=== PATIENT | male | born 1980 | race Caucasian/White ===

== ENCOUNTER 2018-03-22 20:53 | Emergency (ER) | payer OTHER ==
[2018-03-22 21:58] VITALS: RESP 18
--- NOTE | 2018-03-22 23:12 | ED ---
Abdominal Pain HPI - General Chief Complaint: Abdominal Pain Stated Complaint: Abd Pain Time Seen by Provider: 03/22/18 23:11 Source: patient Mode of arrival: ambulatory Limitations: no limitations - History of Present Illness Initial Comments: 37-year-old male with a history of hernia repair approximately 10 years ago, patient states he had the repair with mesh. Patient states that he is not certain what type of hernia he had, he doesn't recall having any specific hernia symptoms. Patient describes it as being evaluated by his physician for a abdominal pain and told that he had a hernia and subsequently undergoing surgery where he was told he had mesh placed. Patient is very uncertain of all of the circumstances leading up to or including his surgery. Patient states that today he began experiencing abdominal pain right around his umbilicus and became concerned that this may be related to the mesh. Patient states that he is concerned that she may have torn inside of him. Eyes any chest from a or heavy lifting. He denies any nausea, vomiting or change in bowel or bladder habits. Denies any fevers or chills. Patient has point tenderness at the umbilicus. - Related Data Previous Rx's Medication Instructions Recorded Cyclobenzaprine [Flexeril] 10 mg PO TID #20 tablet 02/21/14 Hydrocodone/Acetaminophen 1 each PO Q4HR PRN #20 tablet 02/21/14 [Hydrocodone/Acetaminophen 5-325] Ibuprofen [Motrin] 600 mg PO Q8HR PRN #30 tab 02/21/14 Cephalexin [Keflex] 500 mg PO Q6HR #28 cap 03/23/18 Allergies Allergy/AdvReac Type Severity Reaction Status Date / Time No Known Allergies Allergy Verified 03/22/18 21:58 Review of Systems ROS Statement: Those systems with pertinent positive or pertinent negative responses have been documented in the HPI. ROS Other: All systems not noted in ROS Statement are negative. Past Medical History Past Medical History: No Reported History History of Any Multi-Drug Resistant Organisms: None Reported Past Surgical History: Appendectomy, Hernia Repair Past Psychological History: No Psychological Hx Reported Smoking Status: Current every day smoker Past Alcohol Use History: Rare Past Drug Use History: None Reported General Exam Limitations: no limitations General appearance: alert, in no apparent distress Head exam: Present: atraumatic, normocephalic Eye exam: Present: normal appearance, PERRL ENT exam: Present: normal exam Neck exam: Present: normal inspection Respiratory exam: Absent: respiratory distress Cardiovascular Exam: Present: regular rate, normal rhythm GI/Abdominal exam: Present: soft, tenderness (tenderness and erythema of skin surrounding umbilicus, no abscess noted, no drainage from umbilicus), normal bowel sounds. Absent: distended, guarding, rebound, rigid, mass Rectal exam: Present: deferred Extremities exam: Present: normal inspection Back exam: Present: normal inspection Neurological exam: Present: alert, oriented X3 Psychiatric exam: Present: normal affect, normal mood Skin exam: Present: warm, dry, intact Course Vital Signs 03/22/18 03/23/18 21:54 03:16 Temperature 98.4 F 97 F L Pulse Rate 66 88 Respiratory 18 18 Rate Blood Pressure 150/89 134/76 O2 Sat by Pulse 99 98 Oximetry Medical Decision Making - Medical Decision Making The patient was seen and evaluated, history is obtained from the patient Patient with point tenderness superior to the umbilicus, on physical exam I suspect the tenderness is in the soft tissue, however the patient is stated that he has deeper abdominal pain X-ray was ordered and revealed no bowel obstruction, I will proceed with a computed tomography scan Computed tomography scan also suggestive of cellulitis in the umbilical region, no deeper infection no abscess no urethral cysts noted Ulcer discussed the patient who is agreeable to plan for discharge home on oral antibiotics, skin hygiene was discussed with the patient, washing the wound with soapy water, taking oral antibiotics 4 times daily and follow up with primary care or return to the ER for any worsening. All questions pertaining care were answered best my ability patient was discharged home in stable condition - Lab Data Result diagrams: 03/23/18 01:30 03/23/18 01:30 Lab Results 03/22/18 03/23/18 03/23/18 Range/Units Unknown 01:30 01:30 WBC 8.8 (3.8-10.6) k/uL RBC 5.01 (4.30-5.90) m/uL Hgb 15.5 (13.0-17.5) gm/dL Hct 44.1 (39.0-53.0) % MCV 87.9 (80.0-100.0) fL MCH 30.9 (25.0-35.0) pg MCHC 35.1 (31.0-37.0) g/dL RDW 12.7 (11.5-15.5) % Plt Count 262 (150-450) k/uL Neutrophils % 57 % Lymphocytes % 32 % Monocytes % 6 % Eosinophils % 4 % Basophils % 0 % Neutrophils # 5.0 (1.3-7.7) k/uL Lymphocytes # 2.8 (1.0-4.8) k/uL Monocytes # 0.5 (0-1.0) k/uL Eosinophils # 0.4 (0-0.7) k/uL Basophils # 0.0 (0-0.2) k/uL Sodium 139 (137-145) mmol/L Potassium 4.2 (3.5-5.1) mmol/L Chloride 105 (98-107) mmol/L Carbon Dioxide 26 (22-30) mmol/L Anion Gap 8 mmol/L BUN 15 (9-20) mg/dL Creatinine 0.80 (0.66-1.25) mg/dL Est GFR (CKD-EPI)AfAm >90 (>60 ml/min/1.73 sqM) Est GFR (CKD-EPI)NonAf >90 (>60 ml/min/1.73 sqM) Glucose 91 (74-99) mg/dL Calcium 9.5 (8.4-10.2) mg/dL Urine Color Yellow Urine Appearance Clear (Clear) Urine pH 6.0 (5.0-8.0) Ur Specific [place] 1.025 (1.001-1.035) Urine Protein Negative (Negative) Urine Glucose (UA) Negative (Negative) Urine Ketones Negative (Negative) Urine Blood Negative (Negative) Urine Nitrite Negative (Negative) Urine Bilirubin Negative (Negative) Urine Urobilinogen <2.0 (<2.0) mg/dL Ur Leukocyte Esterase Negative (Negative) Disposition Clinical Impression: Cellulitis Disposition: HOME SELF-CARE Condition: Good Instructions: Cellulitis (ED) Prescriptions: Cephalexin [Keflex] 500 mg PO Q6HR #28 cap Is patient prescribed a controlled substance at d/c from ED?: No Referrals: None,Stated [Primary Care Provider] - 1-2 days Time of Disposition: 03:00
--- NOTE | 2018-03-22 23:41 | XR ---
EXAMINATION TYPE: XR abdomen acute w cxr DATE OF EXAM: 03/22/2018 COMPARISON: NONE HISTORY: Abdominal pain TECHNIQUE: Chest x-ray and supine and upright abdomen. FINDINGS: Bowel gas pattern is normal. There is no sign of intestinal obstruction or pneumoperitoneum. Fecal pa ttern is normal. Heart and mediastinum are normal. Lungs are clear. There are no pathologic calcifica tions over the kidneys. IMPRESSION: Normal chest. Nonacute abdomen.
[2018-03-23 00:07] LABS: Appearance,Urine Clear (Clear); Bilirubin,Urine Negative (Negative); Blood,Urine Negative (Negative); Color,Urine Yellow; Glucose,Urine (UA) Negative (Negative); Ketones,Urine Negative (Negative); Leukocyte Esterase,Urine Negative (Negative); Nitrite,Urine Negative (Negative); Protein,Urine Negative (Negative); Specific Gravity,Urine 1.025 (1.001-1.035); Urobilinogen,Urine <2.0 mg/dL (<2.0)
[2018-03-23 01:50] LABS: Basophils % (A) 0 %; Eosinophils # (A) 0.4 k/uL (0-0.7); Eosinophils % (A) 4 %; HCT 44.1 % (39.0-53.0); HGB 15.5 gm/dL (13.0-17.5); Lymphocytes # (A) 2.8 k/uL (1.0-4.8); Lymphocytes % (A) 32 %; MCH 30.9 pg (25.0-35.0); MCHC 35.1 g/dL (31.0-37.0); MCV 87.9 fL (80.0-100.0); Monocytes # (A) 0.5 k/uL (0-1.0); Monocytes % (A) 6 %; Neutrophils % (A) 57 %; Platelet Count 262 k/uL (150-450); RBC 5.01 m/uL (4.30-5.90); RDW 12.7 % (11.5-15.5); WBC 8.8 k/uL (3.8-10.6)
[2018-03-23 02:01] LABS: Anion Gap 8 mmol/L; Blood Urea Nitrogen 15 mg/dL (9-20); Calcium 9.5 mg/dL (8.4-10.2); Carbon Dioxide 26 mmol/L (22-30); Chloride 105 mmol/L (98-107); Glucose 91 mg/dL (74-99); Potassium 4.2 mmol/L (3.5-5.1); Sodium 139 mmol/L (137-145)
--- NOTE | 2018-03-23 02:16 | CT ---
EXAMINATION TYPE: CT abdomen pelvis w con DATE OF EXAM: 03/23/2018 COMPARISON: None HISTORY: no prior, pt having mid abd pain, history of hernia repair with mesh [address] DLP: 469.20 mGycm Automated exposure control for dose reduction was used. TECHNIQUE: Helical acquisition of images was performed from the lung bases through the pelvis. CONTRAST: Performed without Oral Contrast and with IV Contrast, patient injected with 100 mL of Isovue 300. FINDINGS: There is subsegmental atelectasis at the lung bases. There is no pleural effusion. There is no perica rdial effusion. Liver spleen pancreas gallbladder appear normal. Bile ducts are not dilated. There is no adrenal mass . Kidneys show satisfactory contrast opacification. There is no hydronephrosis. There is no retroperi toneal adenopathy. There is cutaneous thickening at the umbilicus. Bladder distends smoothly. There i s no evidence of a bowel obstruction. Appendix is not seen. There is no evidence of appendicitis. Bon y structures are intact. There is no ascites. There is no sign of free air. IMPRESSION: NO ACUTE ABNORMALITY WITHIN THE ABDOMEN AND PELVIS. THERE IS SOME SKIN THICKENING AT THE UMBILICUS TH AT COULD BE POSTSURGICAL OR RELATED TO LOCALIZED INFLAMMATORY CHANGE. CLINICAL CORRELATION NEEDED.
[2018-03-23] MEDS ORDERED: CEPHALEXIN 500MG STARTER PACK 4 CAP BTL PO STA (02:48)
[2018-03-23 03:18] VITALS: BP 134/76; PULSE 88; TEMP 97
== END 2018-03-23 03:16 | disposition home or self-care (01) ==
LOC: EC 20:53
DX: L03.311 Cellulitis of abdominal wall (principal); F17.200 Nicotine dependence, unspecified, uncomplicated; Z90.49 Acquired absence of other specified parts of digestive tract; Z98.890 Other specified postprocedural states
CPT/HCPCS: 36415; 74022; 74177; 80048; 81003; 85025; 99284

== ENCOUNTER 2018-03-29 13:41 | Emergency (ER) | payer OTHER ==
[2018-03-29 14:10] VITALS: BP 149/89; PULSE 84; RESP 16; TEMP 98.3
[2018-03-29] MEDS ORDERED: LIDOCAINE 1% INJ 10MG/ML (20 ML MDV) SQ ONE (15:11)
--- NOTE | 2018-03-29 15:28 | ED ---
General Adult HPI - General Chief complaint: Skin/Abscess/Foreign Body Stated complaint: abdominal pain-revisit Time Seen by Provider: 03/29/18 15:06 Source: patient, RN notes reviewed, old records reviewed Mode of arrival: ambulatory Limitations: no limitations - History of Present Illness Initial comments: 37-year-old male presenting for reevaluation of pain and swelling around his umbilicus. Patient was seen several days ago with this pain complaint. He received complete workup including CAT scan of the abdomen. This did reveal some soft tissue swelling around the umbilicus. Patient has remote history of umbilical hernia status post mesh repair. He denies fever or chills. Denies generalized abdominal pain or nausea vomiting diarrhea. He is otherwise healthy. He has been on Keflex for the past 4 days. Over this time this mild pain has worsened and become more swollen. - Related Data Previous Rx's Medication Instructions Recorded Cyclobenzaprine [Flexeril] 10 mg PO TID #20 tablet 02/21/14 Hydrocodone/Acetaminophen 1 each PO Q4HR PRN #20 tablet 02/21/14 [Hydrocodone/Acetaminophen 5-325] Ibuprofen [Motrin] 600 mg PO Q8HR PRN #30 tab 02/21/14 Cephalexin [Keflex] 500 mg PO Q6HR #28 cap 03/23/18 Cephalexin [Keflex] 500 mg PO Q6HR #40 cap 03/29/18 Ibuprofen [Motrin] 600 mg PO Q8HR PRN #24 tab 03/29/18 Sulfamethox-Tmp 800-160Mg [Bactrim 1 tab PO Q12HR #28 tab 03/29/18 DS 800-160 mg] Allergies Allergy/AdvReac Type Severity Reaction Status Date / Time No Known Allergies Allergy Verified 03/29/18 14:10 Review of Systems ROS Statement: Those systems with pertinent positive or pertinent negative responses have been documented in the HPI. ROS Other: All systems not noted in ROS Statement are negative. Past Medical History Past Medical History: No Reported History History of Any Multi-Drug Resistant Organisms: None Reported Past Surgical History: Appendectomy, Hernia Repair Past Psychological History: No Psychological Hx Reported Smoking Status: Current every day smoker Past Alcohol Use History: Rare Past Drug Use History: None Reported General Exam Limitations: no limitations General appearance: alert, in no apparent distress Head exam: Present: atraumatic, normocephalic Eye exam: Present: normal appearance, PERRL, EOMI ENT exam: Present: normal exam Neck exam: Present: normal inspection. Absent: tenderness, meningismus Respiratory exam: Present: normal lung sounds bilaterally, respiratory distress Cardiovascular Exam: Present: regular rate, normal rhythm GI/Abdominal exam: Present: soft, other (There is umbilical erythema with cellulitis, and central fluctuance. Proximally 2 cm palpable abscess on the inferior border of the umbilicus. Remaining abdominal exam is unremarkable.). Absent: distended, tenderness, guarding Extremities exam: Present: normal inspection Neurological exam: Present: alert, oriented X3, CN II-XII intact. Absent: motor sensory deficit Psychiatric exam: Present: normal affect, normal mood Skin exam: Present: warm, dry, intact Course Vital Signs 03/29/18 14:08 Temperature 98.3 F Pulse Rate 84 Respiratory 16 Rate Blood Pressure 149/89 O2 Sat by Pulse 99 Oximetry Procedures - Incision & Drainage Consent Obtained: verbal consent Time Out Performed?: Yes Site: abdomen Anesthetic Used: lidocaine 1% I&D Cleaning Method: Betadine Sterile Field Used?: Yes Scalpel Used: #11 Needle Aspiration Performed?: Yes I&D Drainage Obtained: Pus, Blood Packing: Iodoform Culture Obtained?: No Patient Tolerated Procedure: well Medical Decision Making - Medical Decision Making 37-year-old male with umbilical abscess. This is strain in the emergency department. Patient does have remote history of umbilical hernia repair with mesh. Given this there is concern that this infection will not clear with drainage and antibiotics alone. He is given outpatient general surgery follow- up. He will continue Keflex, Bactrim will be added. He will return with any worsening or changing symptoms. Disposition Clinical Impression: Abscess Disposition: HOME SELF-CARE Condition: Good Instructions: Abscess Incision and Drainage (ED), Abscess (ED) Prescriptions: Cephalexin [Keflex] 500 mg PO Q6HR #40 cap Ibuprofen [Motrin] 600 mg PO Q8HR PRN #24 tab PRN Reason: Pain Sulfamethox-Tmp 800-160Mg [Bactrim DS 800-160 mg] 1 tab PO Q12HR #28 tab Is patient prescribed a controlled substance at d/c from ED?: No Referrals: None,Stated [Primary Care Provider] - 1-2 days Natty Choi MD [STAFF PHYSICIAN] - 1-2 days Time of Disposition: 15:27
== END 2018-03-29 15:52 | disposition home or self-care (01) ==
LOC: EC 13:41
DX: L02.216 Cutaneous abscess of umbilicus (principal); F17.200 Nicotine dependence, unspecified, uncomplicated; Z90.49 Acquired absence of other specified parts of digestive tract; Z98.890 Other specified postprocedural states
CPT/HCPCS: 99284; 10060; J2001

== ENCOUNTER 2019-02-07 15:26 | Emergency (ER) | payer OTHER ==
[2019-02-07 15:35] VITALS: BP 166/97; PULSE 72; RESP 18; TEMP 98.1
--- NOTE | 2019-02-07 15:43 | ED ---
Head Injury HPI - General Source: patient, RN notes reviewed Mode of arrival: ambulatory Limitations: no limitations <Hector Quiñonez - Last Filed: 02/07/19 15:41> <Lilian Zendejas - Last Filed: 02/07/19 16:07> - General Chief complaint: Head Injury Stated complaint: Head injury Time Seen by Provider: 02/07/19 15:38 - History of Present Illness Initial comments: 38-year-old male presents emergency Department chief complaint of a head injury. Patient states that he is at his housework and states that a beam from an 8 foot ceiling fell onto his head. Patient states that it was a wooden beam. He states he didn't pass out from the site injury. Denies any neck pain, extremity injury. He states he just feels off, chills tired. Patient does complain of headache no blurred vision states that he does have some photosensitivity. Patient denies any focal weakness, nausea, vomiting, chest pain, shortness breat h. (Hector Quiñonez) - Related Data Previous Rx's Medication Instructions Recorded Meclizine [Antivert] 25 mg PO TID #20 tab 02/07/19 Ondansetron Odt [Zofran Odt] 4 mg PO Q8HR PRN #20 tab 02/07/19 Allergies/Adverse reactions: Allergies Allergy/AdvReac Type Severity Reaction Status Date / Time No Known Allergies Allergy Verified 02/07/19 15:53 Review of Systems ROS Other: All systems not noted in ROS Statement are negative. <Hector Quiñonez - Last Filed: 02/07/19 15:41> ROS Other: All systems not noted in ROS Statement are negative. <Lilian Zendejas - Last Filed: 02/07/19 16:07> ROS Statement: Those systems with pertinent positive or pertinent negative responses have been documented in the HPI. Past Medical History Past Medical History: No Reported History History of Any Multi-Drug Resistant Organisms: None Reported Past Surgical History: Appendectomy, Hernia Repair Past Psychological History: No Psychological Hx Reported Smoking Status: Current every day smoker Past Alcohol Use History: Rare Past Drug Use History: Marijuana <Hector Quiñonez - Last Filed: 02/07/19 15:41> General Exam Limitations: no limitations General appearance: alert, in no apparent distress Head exam: Present: atraumatic, normocephalic, normal inspection Eye exam: Present: normal appearance, PERRL, EOMI. Absent: scleral icterus, conjunctival injection, periorbital swelling ENT exam: Present: normal exam, normal oropharynx, mucous membranes moist, TM's normal bilaterally Neck exam: Present: normal inspection, full ROM. Absent: tenderness, meningismus, lymphadenopathy Respiratory exam: Present: normal lung sounds bilaterally, prolonged expiratory. Absent: respiratory distress, wheezes, rales, rhonchi, stridor, decreased breath sounds Cardiovascular Exam: Present: regular rate, normal rhythm, normal heart sounds. Absent: systolic murmur, diastolic murmur, rubs, gallop, clicks Extremities exam: Present: other (Upper extremity strength equal bilaterally neurovascular intact) Neurological exam: Present: alert, oriented X3, CN II-XII intact, reflexes normal, other (Finger to nose intact bilaterally without overshooting). Absent: motor sensory deficit Skin exam: Present: warm, dry, intact, normal color. Absent: rash <Hector Quiñonez - Last Filed: 02/07/19 15:41> Course Vital Signs 02/07/19 15:31 Temperature 98.1 F Pulse Rate 72 Respiratory 18 Rate Blood Pressure 166/97 O2 Sat by Pulse 98 Oximetry Medical Decision Making - Radiology Data Radiology results: report reviewed <Lilian Zendejas - Last Filed: 02/07/19 16:07> - Medical Decision Making Patient's 38-year-old male present today after head injury. Patient reports that he could be a felon have his head. I see this Patient is a signout from [employer]. While pending computed tomography scan. Patient CT's head for any acute renal process. Discussed likely concussion symptoms. Discussed treatment with medication Antivert for symptoms of dizziness discussed Motrin Tylenol for headache. Patient is advised to remain vaginally next 24-48 hours if there is any alarming symptoms occur Patient comes for reevaluation. All questions were answered. (Lilian Zendejas) - Radiology Data CT performed at 1551 shows a negative computed tomography scan of the brain. Ventricles normal size. No mass effect or midline shift. (Lilian Zendejas) Disposition <Hector Quiñonez - Last Filed: 02/07/19 15:41> Is patient prescribed a controlled substance at d/c from ED?: No Time of Disposition: 16:06 <Lilian Zendejas - Last Filed: 02/07/19 16:07> Clinical Impression: Head injury, Concussion Disposition: HOME SELF-CARE Condition: Good Instructions (If sedation given, give patient instructions): Concussion (ED) Additional Instructions: Patient was sitting Motrin Tylenol for pain. Use medication as prescribed to help with symptoms for dizziness and maybe nausea. Patient should have close follow-up with primary care doctor. The Patient should be monitored next 24-48 hours. There is any signs of altered mental status with return to emergency department for prompt reevaluation. Prescriptions: Meclizine [Antivert] 25 mg PO TID #20 tab Ondansetron Odt [Zofran Odt] 4 mg PO Q8HR PRN #20 tab PRN Reason: Nausea Referrals: None,Stated [Primary Care Provider] - 1-2 days Hollie Garcia MD [STAFF PHYSICIAN] - 1-2 days
--- NOTE | 2019-02-07 15:54 | CT ---
EXAMINATION TYPE: CT brain wo con DATE OF EXAM: 02/07/2019 COMPARISON: None HISTORY: MAGANA and dizziness after head injury CT DLP: 1091.4 mGycm. Automated Exposure Control for Dose Reduction was Utilized. TECHNIQUE: CT scan of the head is performed without contrast. FINDINGS: Ventricles of normal size. There is no mass effect nor midline shift. There is no sign of i ntracranial hemorrhage. There is debris in the external auditory canals bilaterally. Calvarium is int act. Impression Negative CT scan of the brain.
== END 2019-02-07 16:16 | disposition home or self-care (01) ==
LOC: EC 15:26
DX: S06.0X0A Concussion without loss of consciousness, initial encounter (principal); F17.200 Nicotine dependence, unspecified, uncomplicated; W20.8XXA Other cause of strike by thrown, projected or falling object, initial encounter; Y92.009 Unspecified place in unspecified non-institutional (private) residence as the place of occurrence of the external cause
CPT/HCPCS: 70450; 99283

== ENCOUNTER 2020-08-27 12:23 | Emergency (ER) | payer OTHER ==
[2020-08-27 12:31] VITALS: PULSE 72
--- NOTE | 2020-08-27 13:00 | ED ---
Chest Pain HPI - General Chief Complaint: Chest Pain Stated Complaint: Chest pain, pulled muscle Time Seen by Provider: 08/27/20 12:30 Source: patient Mode of arrival: ambulatory Limitations: no limitations - History of Present Illness Initial Comments: 39-year-old male presents to emergency room with chest pain. States it started 3 days ago. Located over the left side of his chest which is reproducible with movement. States that it is hard for him to do any heavy lifting for which she states he has been doing a lot of heavy lifting recently. Patient does think that is musculoskeletal in nature however was concerned about cardiac issues. States he does have family history of cardiac disease. No fevers or chills. Denies cough. No difficulties breathing. No ripping or tearing sensation his back. Denies any numbness, tingling or weakness in his extremities. Patient is a smoker. Denies a lower swelling or history of DVT or PE. Denies calf pain. No nausea or vomiting. Denies abdominal pain. No other alleviating, precipitating or modifying factors - Related Data Home Medications Medication Instructions Recorded Confirmed lisinopriL [Zestril] 10 mg PO DAILY 08/27/20 08/27/20 Allergies Allergy/AdvReac Type Severity Reaction Status Date / Time No Known Allergies Allergy Verified 08/27/20 13:01 Review of Systems ROS Statement: Those systems with pertinent positive or pertinent negative responses have been documented in the HPI. ROS Other: All systems not noted in ROS Statement are negative. EKG Findings - EKG Comments: EKG Findings:: EKG demonstrates sinus rhythm with short OK. Rate of 73. OK interval 100. QRS 96. QTC 385. Peaked T waves V2 through V4. No acute ST segment elevations or depressions. no signs of Brugada or WPW. Past Medical History Past Medical History: No Reported History History of Any Multi-Drug Resistant Organisms: None Reported Past Surgical History: Appendectomy, Hernia Repair Past Psychological History: No Psychological Hx Reported Smoking Status: Current every day smoker Past Alcohol Use History: Rare Past Drug Use History: Marijuana General Exam Limitations: no limitations General appearance: alert, in no apparent distress Head exam: Present: atraumatic, normocephalic, normal inspection Eye exam: Present: normal appearance, PERRL, EOMI. Absent: scleral icterus, conjunctival injection, periorbital swelling ENT exam: Present: normal exam, mucous membranes moist Neck exam: Present: normal inspection. Absent: tenderness, meningismus, lymphadenopathy Respiratory exam: Present: normal lung sounds bilaterally, chest wall tenderness (left anterior chest wall). Absent: respiratory distress, wheezes, rales, rhonchi, stridor Cardiovascular Exam: Present: regular rate, normal rhythm, normal heart sounds. Absent: systolic murmur, diastolic murmur, rubs, gallop, clicks GI/Abdominal exam: Present: soft, normal bowel sounds. Absent: distended, tenderness, guarding, rebound, rigid Extremities exam: Present: normal inspection, full ROM, normal capillary refill. Absent: tenderness, pedal edema, joint swelling, calf tenderness Back exam: Present: normal inspection Neurological exam: Present: alert, oriented X3, CN II-XII intact Psychiatric exam: Present: normal affect, normal mood Skin exam: Present: warm, dry, intact, normal color. Absent: rash Course Vital Signs 08/27/20 08/27/20 12:27 14:11 Temperature 97.7 F 98.3 F Pulse Rate 72 72 Respiratory 18 20 Rate Blood Pressure 125/78 111/83 O2 Sat by Pulse 97 99 Oximetry Chest Pain MDM - MDM Upon arrival patient was placed into room 3. There are history and physical, performed. Patient does have reproducible chest pain to palpation. He is hooked to continuous pulse ox and cardiac monitoring. 12-lead EKG was performed. Laboratory studies are conducting the patient went for a chest x- ray. Review the laboratory studies demonstrate a negative troponin. C-reactive protein is negative. Chest x-ray demonstrates no acute process. Results are discussed patient. He was given 50 mg to Toradol for pain control. I discussed the diagnosis, differential and treatment options. Patient will be discharged home at this time to follow up with his primary care doctor in 2-4 days. Recommend an echo of his heart. Take Motrin for pain control. Return to the emergency room for any new or worsening symptoms. Patient was discharged home in stable condition Disposition Clinical Impression: Atypical chest pain Disposition: HOME SELF-CARE Condition: Stable Instructions (If sedation given, give patient instructions): Chest Wall Pain (ED) Additional Instructions: Please follow-up with your primary care doctor in 2-4 days for an echo. Return to the emergency room for any new or worsening symptoms Is patient prescribed a controlled substance at d/c from ED?: No Referrals: None,Stated [Primary Care Provider] - 1-2 days Time of Disposition: 14:12
--- NOTE | 2020-08-27 13:27 | XR ---
EXAMINATION TYPE: XR chest 2V DATE OF EXAM: 08/27/2020 COMPARISON: 03/22/2018 TECHNIQUE: PA and lateral views submitted. HISTORY: Chest pain FINDINGS: The lungs are clear and there is no pneumothorax, pleural effusion, or focal pneumonia. Mild hyperi nflation. IMPRESSION: 1. No acute process.
[2020-08-27 13:29] LABS: ALT 18 U/L (4-49); AST 22 U/L (17-59); African American GFR (CKD) >90 (>60 ml/min/1.73 sqM); Albumin 5.2 g/dL (3.5-5.0); Alkaline Phosphatase 59 U/L (38-126); Anion Gap 6 mmol/L; Blood Urea Nitrogen 12 mg/dL (9-20); C Reactive Protein <5.0 mg/L (<10.0); Calcium 10.3 mg/dL (8.4-10.2); Carbon Dioxide 27 mmol/L (22-30); Chloride 104 mmol/L (98-107); Glucose 94 mg/dL (74-99); Magnesium 1.9 mg/dL (1.6-2.3); Non-African American GFR(CKD) >90 (>60 ml/min/1.73 sqM); Potassium 4.7 mmol/L (3.5-5.1); Sodium 137 mmol/L (137-145); Total Bilirubin 0.6 mg/dL (0.2-1.3); Total Protein 8.3 g/dL (6.3-8.2)
[2020-08-27 13:53] LABS: Partial Thromboplastin Time 24.7 sec (22.0-30.0); Prothrombin Time 10.6 sec (9.0-12.0)
[2020-08-27 13:57] LABS: Basophils % (A) 0 %; Eosinophils # (A) 0.2 k/uL (0-0.7); Eosinophils % (A) 4 %; HCT 50.5 % (39.0-53.0); HGB 16.9 gm/dL (13.0-17.5); Lymphocytes # (A) 2.6 k/uL (1.0-4.8); Lymphocytes % (A) 40 %; MCH 30.7 pg (25.0-35.0); MCHC 33.5 g/dL (31.0-37.0); MCV 91.6 fL (80.0-100.0); Mean Platelet Volume 8.1; Monocytes # (A) 0.4 k/uL (0-1.0); Monocytes % (A) 5 %; Neutrophils # (A) 3.2 k/uL (1.3-7.7); Neutrophils % (A) 50 %; Platelet Count 294 k/uL (150-450); RBC 5.51 m/uL (4.30-5.90); RDW 13.1 % (11.5-15.5); WBC 6.6 k/uL (3.8-10.6)
[2020-08-27] MEDS ORDERED: KETOROLAC 15 MG/ML 1 ML VIAL IVP STA (14:05)
[2020-08-27 14:12] VITALS: BP 111/83; RESP 20; TEMP 98.3
== END 2020-08-27 14:19 | disposition home or self-care (01) ==
LOC: EC 12:23
DX: R07.89 Other chest pain (principal); F17.200 Nicotine dependence, unspecified, uncomplicated; Z79.899 Other long term (current) drug therapy
CPT/HCPCS: 99285 ×2; 96374 ×2; 36415; 93005; 83880; 80053; 83735; 84484; 85025; 85610; 85730; 86140; 71046; J1885

== ENCOUNTER 2021-04-23 07:15 | Emergency (ER) | payer OTHER ==
[2021-04-23 07:21] VITALS: TEMP 98.8
[2021-04-23 07:48] LABS: Basophils % (A) 0 %; Eosinophils % (A) 1 %; HCT 42.8 % (39.0-53.0); HGB 14.8 gm/dL (13.0-17.5); Lymphocytes # (A) 1.4 k/uL (1.0-4.8); Lymphocytes % (A) 29 %; MCH 31.5 pg (25.0-35.0); MCHC 34.7 g/dL (31.0-37.0); MCV 90.7 fL (80.0-100.0); Mean Platelet Volume 7.6; Monocytes # (A) 0.3 k/uL (0-1.0); Monocytes % (A) 7 %; Neutrophils # (A) 2.9 k/uL (1.3-7.7); Neutrophils % (A) 60 %; Platelet Count 197 k/uL (150-450); RBC 4.72 m/uL (4.30-5.90); RDW 12.5 % (11.5-15.5); WBC 4.8 k/uL (3.8-10.6)
[2021-04-23 07:57] LABS: ALT 34 U/L (4-49); AST 32 U/L (17-59); African American GFR (CKD) >90 (>60 ml/min/1.73 sqM); Albumin 4.2 g/dL (3.5-5.0); Alkaline Phosphatase 62 U/L (38-126); Anion Gap 10 mmol/L; Blood Urea Nitrogen 10 mg/dL (9-20); Calcium 9.4 mg/dL (8.4-10.2); Carbon Dioxide 24 mmol/L (22-30); Chloride 106 mmol/L (98-107); Glucose 113 mg/dL (74-99); Magnesium 1.6 mg/dL (1.6-2.3); Non-African American GFR(CKD) >90 (>60 ml/min/1.73 sqM); Potassium 3.8 mmol/L (3.5-5.1); Sodium 140 mmol/L (137-145); Total Bilirubin 0.3 mg/dL (0.2-1.3); Total Protein 6.8 g/dL (6.3-8.2)
[2021-04-23 08:04] LABS: Partial Thromboplastin Time 25.7 sec (22.0-30.0); Prothrombin Time 10.5 sec (9.0-12.0)
[2021-04-23] MEDS ORDERED: DEXAMETHASONE SOD PHOSPHATE 10 MG/ML 1 ML VIAL IV STA (08:14)
--- NOTE | 2021-04-23 08:16 | XR ---
EXAMINATION TYPE: XR chest 2V DATE OF EXAM: 04/23/2021 COMPARISON: Chest x-ray 08/27/2020 HISTORY: Chest pain TECHNIQUE: Frontal and lateral views of the chest are obtained. FINDINGS: There is no focal air space opacity, pleural effusion, or pneumothorax seen. The cardiac silhouette size is within normal limits. There are overlying leads. The osseous structures are intac t. IMPRESSION: No acute cardiopulmonary process.
--- NOTE | 2021-04-23 08:17 | ED ---
General Adult HPI - General Chief complaint: Chest Pain Stated complaint: Vomiting, chest discomfort Time Seen by Provider: 04/23/21 07:21 Source: patient, RN notes reviewed, old records reviewed Mode of arrival: ambulatory Limitations: no limitations - History of Present Illness Initial comments: 40-year-old male presenting with 4 days of subjective fever and chills, weakness, chest discomfort. Patient had been exposed to coronavirus over the weekend and is concerned that he may have developed coronavirus. He reports no significant cough or dyspnea. He's had multiple episodes of vomiting. No diarrhea. His chest pain is central upper chest. No previous history of CAD, no history DVT or PE. Patient is not vaccinated against coronavirus. - Related Data Home Medications Medication Instructions Recorded Confirmed lisinopriL [Zestril] 10 mg PO DAILY 08/27/20 08/27/20 Allergies Allergy/AdvReac Type Severity Reaction Status Date / Time No Known Allergies Allergy Verified 04/23/21 07:21 Review of Systems ROS Statement: Those systems with pertinent positive or pertinent negative responses have been documented in the HPI. ROS Other: All systems not noted in ROS Statement are negative. Past Medical History Past Medical History: Hypertension History of Any Multi-Drug Resistant Organisms: None Reported Past Surgical History: Appendectomy, Hernia Repair Past Psychological History: No Psychological Hx Reported Smoking Status: Current every day smoker Past Alcohol Use History: Rare Past Drug Use History: Marijuana General Exam Limitations: no limitations General appearance: alert, in no apparent distress Head exam: Present: atraumatic, normocephalic Eye exam: Present: normal appearance, PERRL ENT exam: Present: normal exam Neck exam: Present: normal inspection. Absent: tenderness, meningismus Respiratory exam: Present: normal lung sounds bilaterally. Absent: respiratory distress, wheezes Cardiovascular Exam: Present: regular rate, normal rhythm GI/Abdominal exam: Present: soft. Absent: distended, tenderness, guarding Extremities exam: Present: normal inspection, normal capillary refill. Absent: pedal edema Neurological exam: Present: alert, oriented X3, CN II-XII intact. Absent: motor sensory deficit Psychiatric exam: Present: normal affect, normal mood Skin exam: Present: warm, dry, intact. Absent: cyanosis, diaphoretic Course Vital Signs 04/23/21 04/23/21 07:16 08:30 Temperature 98.8 F Pulse Rate 69 66 Respiratory 18 18 Rate Blood Pressure 154/89 123/85 O2 Sat by Pulse 97 98 Oximetry - Reevaluation(s) Reevaluation #1: 04/23/21 08:16 Patient does test positive for coronavirus. I discussed the possibility of treatment with monoclonal antibodies and the patient agrees to treatment. This will be infused in the emergency department. EKG Findings - EKG Comments: EKG Findings:: Short IL, rate of 58, IL interval 108, QRS duration 98, QTC 363, no ST segment elevation. Medical Decision Making - Medical Decision Making 40-year-old male presenting with fever chills, vomiting, chest discomfort. Patient did have a positive contact with coronavirus and is not vaccinated. Testing for coronavirus is positive. I did discuss possibility of monoclonal antibody treatment and the patient agrees. He's infused monoclonal bites in the emergency department as well as given 10 mg of IV steroids. Patient has a alphonse ar chest x-ray. No respiratory distress, no need for supplemental oxygen. He has normal CBC, normal CMP, negative troponin. Minimally positive d-dimer which was ordered for prognostic info not for concern for pulmonary embolism. Patient feeling better on reevaluation, will quarantine for 14 days. Return parameters discussed. - Lab Data Result diagrams: 04/23/21 07:38 04/23/21 07:38 Lab Results 04/23/21 04/23/21 04/23/21 Range/Units 07:38 07:38 07:38 WBC 4.8 (3.8-10.6) k/uL RBC 4.72 (4.30-5.90) m/uL Hgb 14.8 (13.0-17.5) gm/dL Hct 42.8 (39.0-53.0) % MCV 90.7 (80.0-100.0) fL MCH 31.5 (25.0-35.0) pg MCHC 34.7 (31.0-37.0) g/dL RDW 12.5 (11.5-15.5) % Plt Count 197 (150-450) k/uL MPV 7.6 Neutrophils % 60 % Lymphocytes % 29 % Monocytes % 7 % Eosinophils % 1 % Basophils % 0 % Neutrophils # 2.9 (1.3-7.7) k/uL Lymphocytes # 1.4 (1.0-4.8) k/uL Monocytes # 0.3 (0-1.0) k/uL Eosinophils # 0.0 (0-0.7) k/uL Basophils # 0.0 (0-0.2) k/uL PT 10.5 (9.0-12.0) sec INR 1.0 (<1.2) APTT 25.7 (22.0-30.0) sec D-Dimer 0.63 H (<0.60) mg/L FEU Sodium 140 (137-145) mmol/L Potassium 3.8 (3.5-5.1) mmol/L Chloride 106 (98-107) mmol/L Carbon Dioxide 24 (22-30) mmol/L Anion Gap 10 mmol/L BUN 10 (9-20) mg/dL Creatinine 0.74 (0.66-1.25) mg/dL Est GFR (CKD-EPI)AfAm >90 (>60 ml/min/1.73 sqM) Est GFR (CKD-EPI)NonAf >90 (>60 ml/min/1.73 sqM) Glucose 113 H (74-99) mg/dL Calcium 9.4 (8.4-10.2) mg/dL Magnesium 1.6 (1.6-2.3) mg/dL Total Bilirubin 0.3 (0.2-1.3) mg/dL AST 32 (17-59) U/L ALT 34 (4-49) U/L Alkaline Phosphatase 62 (38-126) U/L Troponin I (0.000-0.034) ng/mL Total Protein 6.8 (6.3-8.2) g/dL Albumin 4.2 (3.5-5.0) g/dL Coronavirus (PCR) (Not Detectd) 04/23/21 04/23/21 Range/Units 07:38 07:38 WBC (3.8-10.6) k/uL RBC (4.30-5.90) m/uL Hgb (13.0-17.5) gm/dL Hct (39.0-53.0) % MCV (80.0-100.0) fL MCH (25.0-35.0) pg MCHC (31.0-37.0) g/dL RDW (11.5-15.5) % Plt Count (150-450) k/uL MPV Neutrophils % % Lymphocytes % % Monocytes % % Eosinophils % % Basophils % % Neutrophils # (1.3-7.7) k/uL Lymphocytes # (1.0-4.8) k/uL Monocytes # (0-1.0) k/uL Eosinophils # (0-0.7) k/uL Basophils # (0-0.2) k/uL PT (9.0-12.0) sec INR (<1.2) APTT (22.0-30.0) sec D-Dimer (<0.60) mg/L FEU Sodium (137-145) mmol/L Potassium (3.5-5.1) mmol/L Chloride (98-107) mmol/L Carbon Dioxide (22-30) mmol/L Anion Gap mmol/L BUN (9-20) mg/dL Creatinine (0.66-1.25) mg/dL Est GFR (CKD-EPI)AfAm (>60 ml/min/1.73 sqM) Est GFR (CKD-EPI)NonAf (>60 ml/min/1.73 sqM) Glucose (74-99) mg/dL Calcium (8.4-10.2) mg/dL Magnesium (1.6-2.3) mg/dL Total Bilirubin (0.2-1.3) mg/dL AST (17-59) U/L ALT (4-49) U/L Alkaline Phosphatase (38-126) U/L Troponin I <0.012 (0.000-0.034) ng/mL Total Protein (6.3-8.2) g/dL Albumin (3.5-5.0) g/dL Coronavirus (PCR) Detected A (Not Detectd) Disposition Clinical Impression: Atypical chest pain, COVID-19 Disposition: HOME SELF-CARE Condition: Good Instructions (If sedation given, give patient instructions): Coronavirus Disease 2019 (COVID-19) Additional Instructions: Please quarantined yourself for 14 days. Is patient prescribed a controlled substance at d/c from ED?: No Referrals: Geremias Mcguire MD [Primary Care Provider] - 1-2 days Time of Disposition: 08:38
[2021-04-23] MEDS ORDERED: CASIRIVIMAB/IMDEVIMAB (EUA) 1,200 MG in SODIUM CHLORIDE 0.9% 100 ML IVPB ONE (09:00)
[2021-04-23] MEDS ORDERED: SODIUM CHLORIDE 0.9% 50 ML IVPB ONE (09:30)
[2021-04-23 10:43] VITALS: BP 129/90; PULSE 72; RESP 16
== END 2021-04-23 10:45 | disposition home or self-care (01) ==
LOC: EC 07:15
DX: U07.1 COVID-19 (principal); R07.89 Other chest pain; I10 Essential (primary) hypertension; F17.200 Nicotine dependence, unspecified, uncomplicated; F12.90 Cannabis use, unspecified, uncomplicated; Z90.49 Acquired absence of other specified parts of digestive tract
CPT/HCPCS: 99285; 96365; 96375; 36415; 93005; 85379; 80053; 83735; 84484; 85025; 85610; 85730; 87635; 71046; J1100; Q0243

== ENCOUNTER 2022-02-12 04:43 | Emergency (ER) | payer OTHER ==
[2022-02-12 04:48] VITALS: BP 135/85; PULSE 63; RESP 18; TEMP 97.7
--- NOTE | 2022-02-12 05:00 | ED ---
ENT HPI - General Chief complaint: Dental/Oral Stated complaint: Dental pain Time Seen by Provider: 02/12/22 04:53 Source: patient, RN notes reviewed, old records reviewed Mode of arrival: ambulatory Limitations: no limitations - History of Present Illness Initial comments: This is a 41-year-old male with severe tooth pain. Patient presents today for e valuation of right lower severe tooth pain history of severe dental caries bed teeth and dental abscess. Patient without fever without significant swelling but severe pain MD complaint: tooth pain -: days(s) Location: tooth # Severity: severe Severity scale (1-10): 9 Quality: sharp Consistency: constant Improves with: none Worsens with: none Context-Epistaxis: history of similar Context- Dental: history of dental caries Associated Symptoms: toothache - Related Data Home Medications Medication Instructions Recorded Confirmed lisinopriL [Zestril] 10 mg PO DAILY 08/27/20 04/23/21 Previous Rx's Medication Instructions Recorded Amoxic-Pot Clav 875-125Mg 1 tab PO Q12HR #20 tablet 02/12/22 [Augmentin 875-125] Allergies Allergy/AdvReac Type Severity Reaction Status Date / Time No Known Allergies Allergy Verified 02/12/22 04:48 Review of Systems ROS Statement: Those systems with pertinent positive or pertinent negative responses have been documented in the HPI. ROS Other: All systems not noted in ROS Statement are negative. Past Medical History Past Medical History: Hypertension History of Any Multi-Drug Resistant Organisms: None Reported Past Surgical History: Appendectomy, Hernia Repair Past Psychological History: No Psychological Hx Reported Smoking Status: Current every day smoker Past Alcohol Use History: Rare Past Drug Use History: Marijuana General Exam Limitations: no limitations General appearance: alert, in no apparent distress Head exam: Present: atraumatic, normocephalic, normal inspection Eye exam: Present: normal appearance, PERRL, EOMI. Absent: scleral icterus, conjunctival injection, periorbital swelling ENT exam: Present: normal exam, mucous membranes moist, other (Right posterior lower dental infection) Neck exam: Present: normal inspection. Absent: tenderness, meningismus, lymphadenopathy Respiratory exam: Present: normal lung sounds bilaterally. Absent: respiratory distress, wheezes, rales, rhonchi, stridor Cardiovascular Exam: Present: regular rate, normal rhythm, normal heart sounds. Absent: systolic murmur, diastolic murmur, rubs, gallop, clicks GI/Abdominal exam: Present: soft, normal bowel sounds. Absent: distended, tenderness, guarding, rebound, rigid Extremities exam: Present: normal inspection, full ROM, normal capillary refill. Absent: tenderness, pedal edema, joint swelling, calf tenderness Back exam: Present: normal inspection Neurological exam: Present: alert, oriented X3, CN II-XII intact Psychiatric exam: Present: normal affect, normal mood Skin exam: Present: warm, dry, intact, normal color. Absent: rash Course Vital Signs 02/12/22 04:44 Temperature 97.7 F Pulse Rate 63 Respiratory 18 Rate Blood Pressure 135/85 O2 Sat by Pulse 98 Oximetry - Reevaluation(s) Reevaluation #1: 02/12/22 05:05 Medical record is reviewed Reevaluation #2: 02/12/22 05:05 Pain is improved Reevaluation #3: 02/12/22 05:05 Patient feels good with discharge home Medical Decision Making - Medical Decision Making 41 male DF with severe dental caries dental infection dental abscess. Patient given antibiotics and pain control. Patient given follow-up with dentist Disposition Clinical Impression: Dental caries, Dental abscess Disposition: HOME SELF-CARE Condition: Good Instructions (If sedation given, give patient instructions): Dental Abscess (ED), Toothache (ED) Prescriptions: Amoxic-Pot Clav 875-125Mg [Augmentin 875-125] 1 tab PO Q12HR #20 tablet Is patient prescribed a controlled substance at d/c from ED?: No Referrals: Geremias Mcguire MD [Primary Care Provider] - 1-2 days Farooq Orta DDS [STAFF PHYSICIAN] - 1-2 days Reese Yoo DDS [STAFF PHYSICIAN] - 1-2 days Time of Disposition: 05:00
[2022-02-12] MEDS ORDERED: Acetaminophen-Codeine 300-30mg TAB PO STA (05:03)
[2022-02-12] MEDS ORDERED: AMOXIC-POT CLAV 875-125MG 1 EACH TAB PO STA (05:03)
[2022-02-12] MEDS ORDERED: ACET/COD 300 MG/30 MG STARTER PACK 6 TAB BTL PO STA (05:04)
[2022-02-12] MEDS ORDERED: AMOXIC-POT CLAV 875MG STARTER PACK 2 TAB BTL PO STA (05:04)
== END 2022-02-12 05:12 | disposition home or self-care (01) ==
LOC: EC 04:43
DX: K02.9 Dental caries, unspecified (principal); K04.7 Periapical abscess without sinus; I10 Essential (primary) hypertension; F17.200 Nicotine dependence, unspecified, uncomplicated
CPT/HCPCS: 99282

== ENCOUNTER 2023-11-17 10:22 | Observation (INO) | payer OTHER ==
[2023-11-17 11:08] LABS: Basophils % (A) 0 %; Eosinophils # (A) 0.2 k/uL (0-0.7); Eosinophils % (A) 2 %; HCT 45.9 % (39.0-53.0); HGB 15.5 gm/dL (13.0-17.5); Lymphocytes % (A) 35 %; MCH 31.1 pg (25.0-35.0); MCHC 33.7 g/dL (31.0-37.0); MCV 92.2 fL (80.0-100.0); Mean Platelet Volume 7.3; Monocytes # (A) 0.3 k/uL (0-1.0); Monocytes % (A) 4 %; Neutrophils % (A) 57 %; Platelet Count 298 k/uL (150-450); RBC 4.98 m/uL (4.30-5.90); RDW 12.4 % (11.5-15.5); WBC 8.7 k/uL (3.8-10.6)
--- NOTE | 2023-11-17 11:14 | ED ---
General Adult HPI - General Chief complaint: Chest Pain Stated complaint: Chest Pain Time Seen by Provider: 11/17/23 10:30 Source: patient, RN notes reviewed, old records reviewed Mode of arrival: ambulatory Limitations: no limitations - History of Present Illness Initial comments: This is a 43-year-old male with a past medical history significant for smoking and high blood pressure. Patient states he does not take his blood pressure medications anymore. Patient does not know if he has high cholesterol. Patient states his family history is positive for heart disease both in his mother and father. Patient comes in today complaining of chest pain which radiates to his neck and left arm. Patient states it also made him very short of breath but patient states he has not experienced something similar in the past. Patient denies any recent fever chills or cough. Patient denies movement increasing the pain. Patient has abdominal pain patient has nausea vomiting diarrhea. - Related Data Home Medications Medication Instructions Recorded Confirmed lisinopriL [Zestril] 10 mg PO DAILY 08/27/20 04/23/21 Previous Rx's Medication Instructions Recorded Amoxic-Pot Clav 875-125Mg 1 tab PO Q12HR #20 tablet 02/12/22 [Augmentin 875-125] Allergies Allergy/AdvReac Type Severity Reaction Status Date / Time No Known Allergies Allergy Verified 11/17/23 10:26 Review of Systems ROS Statement: Those systems with pertinent positive or pertinent negative responses have been documented in the HPI. ROS Other: All systems not noted in ROS Statement are negative. Past Medical History Past Medical History: Hypertension History of Any Multi-Drug Resistant Organisms: None Reported Past Surgical History: Appendectomy, Hernia Repair Past Psychological History: No Psychological Hx Reported Smoking Status: Current every day smoker Past Alcohol Use History: Rare Past Drug Use History: Marijuana General Exam - General Exam Comments Initial Comments: GENERAL: Patient is well-developed and well-nourished. Patient is nontoxic and well- hydrated and is in mild distress. ENT: Neck is soft and supple. No significant lymphadenopathy is noted. Oropharynx is clear. Moist mucous membranes. Neck has full range of motion without eliciting any pain. EYES: The sclera were anicteric and conjunctiva were pink and moist. Extraocular movements were intact and pupils were equal round and reactive to light. Eyelids were unremarkable. PULMONARY: Unlabored respirations. Good breath sounds bilaterally. No audible rales rhonchi or wheezing was noted. CARDIOVASCULAR: There is a regular rate and rhythm without any murmurs gallops or rubs. ABDOMEN: Soft and nontender with normal bowel sounds. SKIN: Skin is clear with no lesions or rashes and otherwise unremarkable. NEUROLOGIC: Patient is alert and oriented x3. Cranial nerves II through XII are grossly intact. Motor and sensory are also intact. Normal speech, volume and content. Symmetrical smile. MUSCULOSKELETAL: Normal extremities with adequate strength and full range of motion. No lower extremity swelling or edema. No calf tenderness. LYMPHATICS: No significant lymphadenopathy is noted PSYCHIATRIC: Normal psychiatric evaluation. Limitations: no limitations Course Vital Signs 11/17/23 11/17/23 11/17/23 10:25 10:56 11:33 Temperature 98 F Pulse Rate 90 71 68 Pulse Rate [ 71 Secure Software Assessor ] Respiratory 20 18 18 Rate Blood Pressure 152/87 141/103 122/79 O2 Sat by Pulse 99 94 L 98 Oximetry Medical Decision Making - Medical Decision Making EKG is interpreted by myself but EKG shows a normal sinus rhythm at 80 bpm parables 113 QRS 99 QT interval 363 QTc is 399. Patient's EKG shows no ST segment ovation or depression. EKG is interpreted by myself it was a repeat because the patient continued to have chest pain. EKG shows sinus rhythm at 67 bpm parables 115 QRS 94 QT interval 369 QTc is 384 per patient EKG shows no ST segment elevation or depression Was pt. sent in by a medical professional or institution (, PA, COMPTROLLER, urgent care, hospital, or [facility]...) When possible be specific @ -No Did you speak to anyone other than the patient for history (EMS, parent, family, police, friend...)? What history was obtained from this source @ -No Did you review nursing and triage notes (agree or disagree)? Why? @ -I reviewed and agree with nursing and triage notes Were old charts reviewed (outside hosp., previous admission, EMS record, old EKG, old radiological studies, urgent care reports/EKG's, [facility] records)? Report findings @ -No old charts were reviewed Differential Diagnosis (chest pain, altered mental status, abdominal pain women, abdominal pain men, vaginal bleeding, weakness, fever, dyspnea, syncope, headache, dizziness, GI bleed, back pain, seizure, CVA, palpatations, mental health, musculoskeletal)? @ -Differential Chest Pain: Stable Angina, Unstable Angina, STEMI, NSTEMI Aortic Dissection, Pneumothorax, Musculoskeletal, Esophageal Spasm GERD, Cholecystitis, Pancreatitis, Zoster, this is not meant to be an all-inclusive list. EKG interpreted by me (3pts min.). @ -As above X-rays interpreted by me (1pt min.). @ -None done CT interpreted by me (1pt min.). @ -None done U/S interpreted by me (1pt. min.). @ -None done What testing was considered but not performed or refused? (CT, X-rays, U/S, labs)? Why? @ -None What meds were considered but not given or refused? Why? @ -None Did you discuss the management of the patient with other professionals (professionals i.e. , PA, COMPTROLLER, lab, RT, psych nurse, social welfare clerk, face hardener, teacher, environmental compliance officer, case advocate)? Give summary @ -[facility] admit the patient wrote admitting orders Was smoking cessation discussed for >3mins.? @ -No Was critical care preformed (if so, how long)? @ -No Were there social determinants of health that impacted care today? How? (Homelessness, low income, unemployed, alcoholism, drug addiction, transportation, low edu. Level, literacy, decrease access to med. care, penitentiary, rehab)? @ -No Was there de-escalation of care discussed even if they declined (Discuss DNR or withdrawal of care, Hospice)? DNR status @ -No What co-morbidities impacted this encounter? (DM, HTN, Smoking, COPD, CAD, Cancer, CVA, ARF, Chemo, Hep., AIDS, mental health diagnosis, sleep apnea, morbid obesity)? @ -None Was patient admitted / discharged? Hospital course, mention meds given and route, prescriptions, significant lab abnormalities, going to OR and other pertinent info. @ -Patient was given sublingual nitroglycerin and aspirin. Patient stated did not seem to help much. Patient was given 2 of morphine he stated that did help with the pain. Patient was also given Toradol. [facility] showed no acute abnormality x-ray showed no acute normality. Cardiology will be consulted. Undiagnosed new problem with uncertain prognosis? @ -No Drug Therapy requiring intensive monitoring for toxicity (Heparin, Nitro, Insulin, Cardizem)? @ -No Were any procedures done? @ -No Diagnosis/symptom? @ -Chest pain Acute, or Chronic, or Acute on Chronic? @ -Acute Uncomplicated (without systemic symptoms) or Complicated (systemic symptoms)? @ -Complicated Side effects of treatment? @ -No Exacerbation, Progression, or Severe Exacerbation? @ -No Poses a threat to life or bodily function? How? (Chest pain, USA, ND, pneumonia, PE, COPD, DKA, ARF, appy, cholecystitis, CVA, Diverticulitis, Homicidal, Suicidal, threat to staff... and all critical care pts) @ -Yes this can lead to an ND and endorgan dysfunction - Lab Data Result diagrams: 11/17/23 11:00 11/17/23 11:00 Lab Results 11/17/23 11/17/23 11/17/23 Range/Units 11:00 11:00 11:00 WBC 8.7 (3.8-10.6) k/uL RBC 4.98 (4.30-5.90) m/uL Hgb 15.5 (13.0-17.5) gm/dL Hct 45.9 (39.0-53.0) % MCV 92.2 (80.0-100.0) fL MCH 31.1 (25.0-35.0) pg MCHC 33.7 (31.0-37.0) g/dL RDW 12.4 (11.5-15.5) % Plt Count 298 (150-450) k/uL MPV 7.3 Neutrophils % 57 % Lymphocytes % 35 % Monocytes % 4 % Eosinophils % 2 % Basophils % 0 % Neutrophils # 5.0 (1.3-7.7) k/uL Lymphocytes # 3.0 (1.0-4.8) k/uL Monocytes # 0.3 (0-1.0) k/uL Eosinophils # 0.2 (0-0.7) k/uL Basophils # 0.0 (0-0.2) k/uL PT 10.5 (10.0-12.5) sec INR 0.9 (<1.2) APTT 24.7 (22.0-30.0) sec D-Dimer (<0.60) mg/L FEU Sodium 138 (137-145) mmol/L Potassium 4.1 (3.5-5.1) mmol/L Chloride 106 (98-107) mmol/L Carbon Dioxide 23 (22-30) mmol/L Anion Gap 9 mmol/L BUN 16 (9-20) mg/dL Creatinine 0.87 (0.66-1.25) mg/dL Est GFR (CKD-EPI)AfAm >90 (>60 ml/min/1.73 sqM) Est GFR (CKD-EPI)NonAf >90 (>60 ml/min/1.73 sqM) Glucose 106 H (74-99) mg/dL Calcium 10.2 (8.4-10.2) mg/dL Magnesium 1.5 L (1.6-2.3) mg/dL Total Bilirubin 0.8 (0.2-1.3) mg/dL AST 25 (17-59) U/L ALT 21 (4-49) U/L Alkaline Phosphatase 93 (38-126) U/L Troponin I (0.000-0.034) ng/mL Total Protein 7.3 (6.3-8.2) g/dL Albumin 4.7 (3.5-5.0) g/dL 11/17/23 11/17/23 Range/Units 11:00 11:00 WBC (3.8-10.6) k/uL RBC (4.30-5.90) m/uL Hgb (13.0-17.5) gm/dL Hct (39.0-53.0) % MCV (80.0-100.0) fL MCH (25.0-35.0) pg MCHC (31.0-37.0) g/dL RDW (11.5-15.5) % Plt Count (150-450) k/uL MPV Neutrophils % % Lymphocytes % % Monocytes % % Eosinophils % % Basophils % % Neutrophils # (1.3-7.7) k/uL Lymphocytes # (1.0-4.8) k/uL Monocytes # (0-1.0) k/uL Eosinophils # (0-0.7) k/uL Basophils # (0-0.2) k/uL PT (10.0-12.5) sec INR (<1.2) APTT (22.0-30.0) sec D-Dimer <0.17 (<0.60) mg/L FEU Sodium (137-145) mmol/L Potassium (3.5-5.1) mmol/L Chloride (98-107) mmol/L Carbon Dioxide (22-30) mmol/L Anion Gap mmol/L BUN (9-20) mg/dL Creatinine (0.66-1.25) mg/dL Est GFR (CKD-EPI)AfAm (>60 ml/min/1.73 sqM) Est GFR (CKD-EPI)NonAf (>60 ml/min/1.73 sqM) Glucose (74-99) mg/dL Calcium (8.4-10.2) mg/dL Magnesium (1.6-2.3) mg/dL Total Bilirubin (0.2-1.3) mg/dL AST (17-59) U/L ALT (4-49) U/L Alkaline Phosphatase (38-126) U/L Troponin I <0.012 (0.000-0.034) ng/mL Total Protein (6.3-8.2) g/dL Albumin (3.5-5.0) g/dL Disposition Clinical Impression: Chest pain Disposition: ADMITTED IP TO THIS HOSP Referrals: None,Stated [Primary Care Provider] - 1-2 days Time of Disposition: 12:43
[2023-11-17] MEDS: NITROGLYCERIN OINT 1 INCH/GM PACKET TOPICAL STA (11:19)
[2023-11-17 11:20] LABS: ALT 21 U/L (4-49); AST 25 U/L (17-59); African American GFR (CKD) >90 (>60 ml/min/1.73 sqM); Albumin 4.7 g/dL (3.5-5.0); Alkaline Phosphatase 93 U/L (38-126); Anion Gap 9 mmol/L; Blood Urea Nitrogen 16 mg/dL (9-20); Calcium 10.2 mg/dL (8.4-10.2); Carbon Dioxide 23 mmol/L (22-30); Chloride 106 mmol/L (98-107); Glucose 106 mg/dL (74-99); Magnesium 1.5 mg/dL (1.6-2.3); Non-African American GFR(CKD) >90 (>60 ml/min/1.73 sqM); Potassium 4.1 mmol/L (3.5-5.1); Sodium 138 mmol/L (137-145); Total Bilirubin 0.8 mg/dL (0.2-1.3); Total Protein 7.3 g/dL (6.3-8.2)
[2023-11-17] MEDS: ASPIRIN 81 MG PO STA (11:20)
[2023-11-17] MEDS: NITROGLYCERIN SL TABS 0.4 MG TAB SUBLINGUAL STA (11:20)
--- NOTE | 2023-11-17 11:25 | XR ---
EXAMINATION TYPE: XR chest 2V DATE OF EXAM: 11/17/2023 COMPARISON: 04/23/2021, 08/27/2019 TECHNIQUE: PA and lateral views submitted. HISTORY: Chest pain FINDINGS: The lungs are clear and there is no pneumothorax, pleural effusion, or focal pneumonia. Heart size normal and no overt failure. Osseous structures intact. IMPRESSION: 1. No acute process.
[2023-11-17 11:31] LABS: INR 0.9 (<1.2); Partial Thromboplastin Time 24.7 sec (22.0-30.0); Prothrombin Time 10.5 sec (10.0-12.5)
[2023-11-17] MEDS: MORPHINE SULFATE 2 MG/ML SYRINGE IVP STA (11:43)
[2023-11-17] MEDS: KETOROLAC 15 MG/ML 1 ML VIAL IVP STA ×2 (12:42→17:24)
[2023-11-17] MEDS: MAGNESIUM SULFATE-D5W PMX 1 GM in DEXTROSE/WATER 1 100ML.BAG IVPB ONE (12:43)
[2023-11-17] MEDS ORDERED: NITROGLYCERIN SL TABS 0.4 MG TAB SUBLINGUAL PRN (12:43)
--- NOTE | 2023-11-17 15:45 | P.HPIM ---
History of Present Illness H&P Date: 11/17/23 Chief Complaint: Chest pain 43-year-old male with a past medical history significant for smoking and high blood pressure. Patient states he does not take his blood pressure medications anymore. Patient does not know if he has high cholesterol. Patient states his family history is positive for heart disease both in his mother and father. Patient comes in today complaining of chest pain which radiates to his neck and left arm. Patient states it also made him very short of breath but patient states he has not experienced something similar in the past. Patient denies any recent fever chills or cough. Patient denies movement increasing the pain. Patient has abdominal pain patient has nausea vomiting diarrhea. Patient was given sublingual nitroglycerin and aspirin. Patient stated did not seem to help much. Patient was given 2 of morphine he stated that did help with the pain. Patient was also given Toradol. Patient will be admitted for further cardiac evaluation -- lab work showed no acute abnormality x-ray showed no acute normality. Cardiology will be consulted. Blood work completed in ED reveals a WBC of 8.7, hemoglobin of 15.5 and platelet count of 298, sodium 138, potassium 4.1, BUNs/creatinine of 16/0.87 and blood glucose of 106, troponin less than 0.012, D-dimer less than 0.017 Review of Systems REVIEW OF SYSTEMS: CONSTITUTIONAL: No fever, no malaise, no fatigue. HEENT: No recent visual problems or hearing problems. Denied any sore throat. CARDIOVASCULAR: No chest pain, orthopnea, PND, no palpitations, no syncope. PULMONARY: No shortness of breath, no cough, no hemoptysis. GASTROINTESTINAL: No diarrhea, no nausea, no vomiting, no abdominal pain. NEUROLOGICAL: No headaches, no weakness, no numbness. HEMATOLOGICAL: Denies any bleeding or petechiae. GENITOURINARY: Denies any burning micturition, frequency, or urgency. MUSCULOSKELETAL/RHEUMATOLOGICAL: Denies any joint pain, swelling, or any muscle pain. ENDOCRINE: Denies any polyuria or polydipsia. The rest of the 14-point review of systems is negative. Past Medical History Past Medical History: Hypertension History of Any Multi-Drug Resistant Organisms: None Reported Past Surgical History: Appendectomy, Hernia Repair Past Psychological History: No Psychological Hx Reported Smoking Status: Current every day smoker Past Alcohol Use History: Rare Past Drug Use History: Marijuana Medications and Allergies Home Medications Medication Instructions Recorded Confirmed Type No Known Home Medications 11/17/23 11/17/23 History Allergies Allergy/AdvReac Type Severity Reaction Status Date / Time No Known Allergies Allergy Verified 11/17/23 12:56 Physical Exam Vitals: Vital Signs Temp Pulse Pulse Resp BP Pulse Ox 11/17/23 12:41 63 18 128/73 98 11/17/23 11:33 68 18 122/79 98 11/17/23 10:56 71 71 18 141/103 94 L 11/17/23 10:25 98 F 90 20 152/87 99 Intake and Output 11/16/23 11/17/23 11/17/23 22:59 06:59 14:59 Other: Weight 86.183 kg - Constitutional General appearance: Present: average body habitus, cooperative, no acute distress - EENT Eyes: Present: anicteric sclerae, EOMI, PERRLA, normal appearance ENT: Present: hearing grossly normal, normal oropharynx Ears: bilateral: normal - Neck Neck: Present: normal ROM. Absent: lymphadenopathy, rigidity, thyromegaly Carotids: negative: bruit present Thyroid: bilateral: normal size, negative: enlarged, nodule - Respiratory Respiratory: bilateral: CTA, negative: rales, rhonchi, wheezing - Cardiovascular Rhythm: regular Heart sounds: normal: S1, S2 Abnormal Heart Sounds: Absent: systolic murmur, diastolic murmur - Gastrointestinal General gastrointestinal: Present: normal bowel sounds, soft. Absent: distended, organomegaly, tenderness - Genitourinary Genitourinary Comment(s): deferred - Integumentary Integumentary: Present: normal turgor. Absent: jaundiced, rash, ulcer - Neurologic Neurologic: Present: CNII-XII intact. Absent: focal deficits - Musculoskeletal Musculoskeletal: Present: gait normal, strength equal bilaterally - Psychiatric Psychiatric: Present: A&O x's 3, appropriate affect, intact judgment & insight Results CBC & Chem 7: 11/17/23 11:00 11/17/23 11:00 Labs: Abnormal Lab Results - Last 24 Hours (Table) 11/17/23 Range/Units 11:00 Glucose 106 H (74-99) mg/dL Magnesium 1.5 L (1.6-2.3) mg/dL Assessment and Plan Assessment: 1. Chest pain rule out acute coronary syndrome --Will be admitted to telemetry; monitor EKG and trend troponin -- Recommend 2D echo -Consult cardiology 2. Hypomagnesemia; supplemented in ED; continue to monitor electrolytes and supplement as needed 3. Hypertension; currently not on any antihypertensive therapy; monitor closely for any need for initiating antihypertensive medications prior to discharge DVT prophylaxis; SCDs CODE STATUS; full code
[2023-11-17] MEDS: ATORVASTATIN 80 MG TAB PO STA ×2 (17:07→17:15)
[2023-11-17] MEDS: ACETAMINOPHEN TAB 325 MG TAB PO PRN (17:23)
[2023-11-17 18:12] VITALS: RESP 16
[2023-11-17] MEDS: NITROGLYCERIN OINT 1 INCH/GM PACKET TOPICAL SCH (20:09)
[2023-11-18 08:45] VITALS: BP 156/81; PULSE 62; TEMP 97.8
[2023-11-18] MEDS ORDERED: ASPIRIN 325 MG TAB PO SCH (09:00)
[2023-11-18] MEDS: lisinopriL 5 MG TAB PO SCH (09:21)
[2023-11-18 10:06] LABS: Chol/HDL Ratio 2.62 Ratio; VLDL Calculation 10.72 mg/dL (5.00-40.00)
--- NOTE | 2023-11-18 12:04 | P.CRDCN ---
History of Present Illness Consult date: 11/18/23 Consult reason: chest pain History of present illness: The patient is a 43-year-old male with no significant past medical history, who presented to the emergency room with new onset of chest discomfort. The patient states that he was noted to develop new onset of a squeezing sensation in his chest that radiated into his left neck and left arm. He states that this was not exacerbated by movement or exertional activity. The patient has not had a history of chest pain. The patient is a current smoker, both nicotine and marijuana use. He also drinks regularly. DIAGNOSTICS: EKG shows sinus mechanism without ST or T wave abnormalities Chest x-ray shows no acute cardiopulmonary process. Lab data: WBC 8.7, hemoglobin 15.5, hematocrit 45.9, platelet 298, D-dimer less than 0.17, sodium 130, potassium 4.1, BUN 16, creatinine 0.87, magnesium 1.5, AST 25, ALT 21, troponins negative x 3, triglycerides 53, LDL 98, and HDL 62 REVIEW OF SYSTEMS: No fever or chills. No cough or expectoration. No diaphoresis. Patient denies headache, dizziness, blurred vision, double vision. Patient denies any stomach discomfort. No nausea, vomiting. No hematochezia. No hematemesis. Denies any black stools or blood in his stools. Denies dysuria or hematuria. No muscle weakness or numbness. Positive for chest discomfort. PHYSICAL EXAMINATION: This is a 42-year-old male in no apparent distress at the time of my examination. HEENT: Head is atraumatic, normocephalic. Pupils are equal, round. There is no jugular venous distention. No carotid bruit is heard. CHEST EXAMINATION: Lungs are clear to auscultation. No chest wall tenderness is noted on palpation or with deep breathing. HEART EXAMINATION: Heart regular rate and rhythm. S1, S2 heard. No murmurs, gallops or rub. ABDOMEN: Soft, nontender. Bowel sounds are heard. No organomegaly noted. EXTREMITIES: 2+ peripheral pulses with no evidence of peripheral edema and no calf tenderness noted. NEUROLOGIC EXAMINATION: Patient is awake, alert and oriented x3. FINAL ASSESSMENT AND PLAN: Chest discomfort Borderline hypertension History of hyperlipidemia, untreated Current smoker, nicotine and marijuana PLAN: Check lipid profile Start low-dose lisinopril Continue atorvastatin Patient may be discharged from the cardiac standpoint with outpatient follow-up in 2 weeks I am dictating on behalf of Dr Amor Mills's history/physical and assessment/plan. Past Medical History Past Medical History: Hypertension History of Any Multi-Drug Resistant Organisms: None Reported Past Surgical History: Appendectomy, Hernia Repair Past Psychological History: No Psychological Hx Reported Smoking Status: Current every day smoker Past Alcohol Use History: Rare Past Drug Use History: Marijuana Medications and Allergies Home Medications Medication Instructions Recorded Confirmed Type No Known Home Medications 11/17/23 11/17/23 History Allergies Allergy/AdvReac Type Severity Reaction Status Date / Time No Known Allergies Allergy Verified 11/17/23 12:56 Physical Exam Vitals: Vital Signs Temp Pulse Pulse Pulse Resp BP BP 11/18/23 02:00 98.1 F 67 16 106/78 11/17/23 20:00 98.3 F 60 16 131/81 11/17/23 17:50 16 11/17/23 17:41 97.4 F L 64 16 146/86 11/17/23 16:48 64 18 128/88 11/17/23 16:00 97.9 F 62 18 124/63 11/17/23 14:00 69 18 128/81 11/17/23 12:41 63 18 128/73 11/17/23 11:33 68 18 122/79 11/17/23 10:56 71 71 18 141/103 11/17/23 10:25 98 F 90 20 152/87 Pulse Ox 11/18/23 02:00 98 11/17/23 20:00 95 11/17/23 17:50 11/17/23 17:41 99 11/17/23 16:48 99 11/17/23 16:00 99 11/17/23 14:00 98 11/17/23 12:41 98 11/17/23 11:33 98 11/17/23 10:56 94 L 11/17/23 10:25 99 Intake and Output 11/17/23 11/18/23 11/18/23 22:59 06:59 14:59 Intake Total 100 Balance 100 Intake: Oral 100 Other: Voiding Method Toilet # Voids 1 Weight 86.183 kg Results 11/17/23 11:00 11/17/23 11:00 Cardiac Enzymes 11/17/23 11/17/2324 Range/Units 11:00 11:00 14:21 AST 25 (17-59) U/L Troponin I <0.012 <0.012 (0.000-0.034) ng/mL 11/17/23 Range/Units 18:09 AST (17-59) U/L Troponin I <0.012 (0.000-0.034) ng/mL Coagulation 11/17/23 Range/Units 11:00 PT 10.5 (10.0-12.5) sec APTT 24.7 (22.0-30.0) sec CBC 11/17/23 Range/Units 11:00 WBC 8.7 (3.8-10.6) k/uL RBC 4.98 (4.30-5.90) m/uL Hgb 15.5 (13.0-17.5) gm/dL Hct 45.9 (39.0-53.0) % Plt Count 298 (150-450) k/uL Comprehensive Metabolic Panel 11/17/23 Range/Units 11:00 Sodium 138 (137-145) mmol/L Potassium 4.1 (3.5-5.1) mmol/L Chloride 106 (98-107) mmol/L Carbon Dioxide 23 (22-30) mmol/L BUN 16 (9-20) mg/dL Creatinine 0.87 (0.66-1.25) mg/dL Glucose 106 H (74-99) mg/dL Calcium 10.2 (8.4-10.2) mg/dL AST 25 (17-59) U/L ALT 21 (4-49) U/L Alkaline Phosphatase 93 (38-126) U/L Total Protein 7.3 (6.3-8.2) g/dL Albumin 4.7 (3.5-5.0) g/dL Current Medications Generic Name Dose Route Start Last Admin Trade Name Freq PRN Reason Stop Dose Admin Acetaminophen 650 mg 11/17/23 17:13 11/17/23 17:23 Acetaminophen Tab 325 Mg Tab PO 650 mg Q6HR PRN Administration Fever and/ or Pain Aspirin 325 mg 11/18/23 09:00 Aspirin 325 Mg Tab PO DAILY BASSAM Nitroglycerin 0.4 mg 11/17/23 12:43 Nitroglycerin Sl Tabs 0.4 Mg Tab SUBLINGUAL Q5M PRN Chest Pain Nitroglycerin 1 inch 11/17/23 18:00 11/18/23 05:15 Nitroglycerin Oint 1 Inch/Gm Packet TOPICAL Not Given Q6HR BASSAM Intake and Output 11/17/23 11/18/23 11/18/23 22:59 06:59 14:59 Intake Total 100 Balance 100 Intake: Oral 100 Other: Voiding Method Toilet # Voids 1 Weight 86.183 kg 11/17/23 11:00 11/17/23 11:00
--- NOTE | 2023-12-03 18:17 | P.DS ---
Providers Date of admission: 11/17/23 12:46 Expected date of discharge: 11/18/23 Attending physician: Zeus Leonard Consults: 11/17/23 12:43 Consult Physician Urgent Consulting Provider: [facility] Consult Reason/Comments: Chest pain Do you want consulting provider notified?: Yes Primary care physician: Stated None Hospital Course: 43-year-old male with a past medical history significant for smoking and high blood pressure. Patient states he does not take his blood pressure medications anymore. Patient does not know if he has high cholesterol. Patient states his family history is positive for heart disease both in his mother and father. Patient comes in today complaining of chest pain which radiates to his neck and left arm. Patient states it also made him very short of breath but patient states he has not experienced something similar in the past. Patient denies any recent fever chills or cough. Patient denies movement increasing the pain. Patient has abdominal pain patient has nausea vomiting diarrhea. Patient was given sublingual nitroglycerin and aspirin. Patient stated did not seem to help much. Patient was given 2 of morphine he stated that did help with the pain. Patient was also given Toradol. Patient will be admitted for further cardiac evaluation -- lab work showed no acute abnormality x-ray showed no acute normality. Cardi ology will be consulted. Blood work completed in ED reveals a WBC of 8.7, hemoglobin of 15.5 and platelet count of 298, sodium 138, potassium 4.1, BUNs/creatinine of 16/0.87 and blood glucose of 106, troponin less than 0.012, D-dimer less than 0.017 Chest discomfort Borderline hypertension History of hyperlipidemia, untreated Current smoker, nicotine and marijuana PLAN: Check lipid profile Start low-dose lisinopril Continue atorvastatin Patient may be discharged from the cardiac standpoint with outpatient follow-up in 2 weeks Plan - Discharge Summary New Discharge Prescriptions: New lisinopriL [Zestril] 5 mg PO DAILY 30 Days #30 tab Discharge Medication List lisinopriL [Zestril] 5 mg PO DAILY 30 Days #30 tab 11/18/23 [Rx] Follow up Appointment(s)/Referral(s): Amor Mills MD [STAFF PHYSICIAN] - 2 Weeks None,Stated [Primary Care Provider] - 1-2 days Patient Instructions/Handouts: Chest Pain (DC) Discharge Disposition: HOME SELF-CARE
== END 2023-11-18 13:17 | disposition home or self-care (01) ==
LOC: EC 10:22 → 5NMEDONC 12:46 → 4SSUR 13:30
PROVIDERS: ADMIT Hospitalist; ATTEND Hospitalist
DX: R07.89 Other chest pain (principal); R06.02 Shortness of breath; M54.2 Cervicalgia; M79.602 Pain in left arm; E83.42 Hypomagnesemia; E78.5 Hyperlipidemia, unspecified; I10 Essential (primary) hypertension; F17.200 Nicotine dependence, unspecified, uncomplicated; R10.9 Unspecified abdominal pain; R11.2 Nausea with vomiting, unspecified; R19.7 Diarrhea, unspecified; Z82.49 Family history of ischemic heart disease and other diseases of the circulatory system
CPT/HCPCS: 96376; 96365; 96375; 99285; 36415; 93005; 85379; 80061; 80053; 83735; 84484; 85025; 85610; 85730; 71046; G0378 ×2; J2270; J3475; J1885